=== PATIENT | male | born 1995 | race African-American/Black ===

== ENCOUNTER 2017-02-20 07:32 | Emergency (ER) | payer OTHER ==
[~2017-02-20] VITALS: Ht 185.4 cm; Wt 91.5 kg
[2017-02-20] MEDS ORDERED: AMOXICILLIN500 M1 PO (07:53)
[2017-02-20 08:17] VITALS: BP 130/76
== END 2017-02-20 08:18 | disposition home or self-care (01) ==
LOC: EME 07:32
DX: H66.91 Otitis media, unspecified, right ear (principal)
CPT/HCPCS: 99281; 99283